=== PATIENT | female | born 1995 | race Hispanic/Latino ===

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

== ENCOUNTER 2018-09-11 11:08 | Emergency (ER) | payer MEDICAID, OTHER ==
[~2018-09-11 11:08] MED LIST: Iopamidol 370 76% 100 ML VIAL ONE; Iopamidol 370 76% 200 ML VIAL ONE; Sodium Chloride 0.9% 100 ML BAG ONE
[2018-09-11] MEDS ORDERED: Sodium Chloride 0.9% 1,000 ML ONE ×4 (11:27→15:19)
[2018-09-11] MEDS ORDERED: Dicyclomine 10 MG CAP ONE (11:27)
[2018-09-11 11:53] LABS: Band 3 % (5-11); Hemoglobin 13.8 g/dL (12.0-16.0); Lymphocytes 12 % (28-48); MDiff Complete? YES; Mean Corpuscular Volume 78.1 fL (78.0-98.0); Mean Platelet Volume 6.3 fL (7.4-10.4); Monocytes 1 % (0-4); Neutrophil 84 % (31-61); Platelet Count 355 thou/uL (130-400); RBC Distribution Width 13.3 % (11.5-14.5); Red Blood Cell (RBC) Count 5.54 mill/uL (4.00-5.20); White Blood Cell (WBC) Count 9.4 thou/uL (4.8-10.8)
[2018-09-11 11:57] LABS: ALT (SGPT) 25 U/L (8-55); AST (SGOT) 18 U/L (5-34); Albumin 4.4 g/dL (3.5-5.0); Alkaline Phosphatase 115 U/L (40-150); Anion Gap 12 mmol/L (10-20); BUN (Urea Nitrogen) 10 mg/dL (7.0-18.7); Bilirubin, Total 0.5 mg/dL (0.2-1.2); Calc. Creatinine Clearance 0 mL/min (70-130); Calcium 8.8 mg/dL (7.8-10.44); Carbon Dioxide 22 mmol/L (22-29); Chloride 108 mmol/L (98-107); Estimated GFR-MDRD Greater than 90; Globulin 3.2 g/dL (2.4-3.5); Glucose 114 mg/dL (70-105); Potassium 3.7 mmol/L (3.5-5.1); Protein, Total 7.6 g/dL (6.0-8.3); Sodium 138 mmol/L (136-145)
[2018-09-11] MEDS ORDERED: Loperamide HCl 2 MG CAP ONE (12:10)
[2018-09-11] MEDS ORDERED: Lorazepam 2 MG/ML VIAL ONE (14:58)
[2018-09-11 15:46] LABS: Bilirubin Negative (Negative); Blood, Urine Trace (Negative); Glucose, Urine (Dipstick) Negative (Negative); Leukocyte Negative (Negative); Nitrite Negative (Negative); Protein, Urine (Dipstick) Negative (Neg-Trace); Urobilinogen 0.2 mg/dL (0.2-1.0); pH, Urine 5.5 (5.0-9.0)
[2018-09-11 15:49] LABS: Pregnancy Test - Urine (BHCG) Negative (Negative); Pregu Control Background? CLEAR/WHITE (CLR/WHITE); Pregu Control Bar Appear? YES (CONTROL BAR)
[2018-09-11 15:52] LABS: Amphetamine Not Detected (NotDetected); Barbiturates Screen Not Detected (NotDetected); Benzodiazepine Screen Not Detected (NotDetected); Cocaine Metabolite Screen Not Detected (NotDetected); Medtox Control Line Valid? VALID (VALID); Methadone Not Detected (NotDetected); Methamphetamine Not Detected (NotDetected); Opiate Screen Not Detected (NotDetected); Oxycodone Screen Not Detected (NotDetected); Phencyclidine (PCP) Not Detected (NotDetected); THC/Cannabinoid Screen Not Detected (NotDetected); Tricyclic Screen Not Detected (NotDetected)
[2018-09-11 15:53] LABS: Bacteria/HPF Rare-Few HPF (None Seen); Clarity Hazy (Clear); RBC/HPF 0-3 HPF (0-3); WBC/HPF None Seen HPF (0-3)
--- NOTE | 2018-09-11 16:45 | CT ---
CT ABDOMEN AND PELVIS WITH IV CONTRAST 09/11/18 HISTORY: Abdominal pain, nausea, vomiting, diarrhea, and tachycardia. FINDINGS: There are mild dependent changes of the lung bases. The liver, spleen, pancreas, adrenal glands and l eft kidney are normal. There is a tiny calculus in the right kidney. There is mild right sided hydrou reteronephrosis. No calculi is seen in the ureters or the urinary bladder. No left sided hydrouretero nephrosis seen. There is a circumaortic left renal vein. No free air, free fluid or lymphadenopathy seen in the abdomen or pelvis. The small bowel loops are n ot abnormally dilated. A normal appearing appendix is present. The uterus and ovaries are present. No acute osseous abnormalities are seen. IMPRESSION: 1. Mild right sided hydroureteronephrosis without evidence of obstructing calculus. This may be due to infection or recent passage of calculus. 2. Tiny right renal calculus. POS: [facility]
--- NOTE | 2018-09-11 19:10 | CT ---
CT angiogram thorax with contrast: (CTA pulmonary angiogram) HISTORY: 22-year-old female with tachycardia and elevated d-dimer TECHNIQUE: IV injection of iodinated contrast. Scan acquisition timing attempted to coincide with iodinated contrast bolus reaching maximal density in pulmonary arteries. 3-D MIP reconstructions. FINDINGS: Pulmonary thromboembolism: Normal visualized, although peripheral branches are difficult to evaluate because of breathing motion artifact. Lungs: No consolidation. Diffusely hazy densities bilaterally could be due to patient breathing motion artifact, although mild pulmonary interstitial edema is not excluded.. Pneumothorax: None. Pleural effusion: None. Thoracic aorta: No aneurysm or dissection. IMPRESSION: No pulmonary thromboembolism identified.
== END 2018-09-11 20:43 | disposition short-term general hospital (02) ==
LOC: MADERS 11:08
DX: R00.0 Tachycardia, unspecified (principal); R19.7 Diarrhea, unspecified
CPT/HCPCS: 71275; 74177; 80053; 80306; 81003; 81015; 81025; 83605; 84443; 84484; 85025; 85379; 93005; 96361; 96374; J2060; J3490; J7050; Q9967

== ENCOUNTER 2021-04-11 10:43 | Emergency (ER) | payer MEDICAID, SELFPAY ==
[2021-04-11] MEDS ORDERED: Ondansetron ODT 4 MG TAB ONE (11:54)
[2021-04-11] MEDS ORDERED: Mag-Al Plus 1200 MG/1200 MG/120 MG/30 ML UDCUP ONE (11:55)
[2021-04-11] MEDS ORDERED: Lidocaine Viscous Sol 2% 15 ml UD Cup ONE (11:55)
[2021-04-11 12:32] LABS: Pregnancy Test - Urine (BHCG) Negative (Negative)
[2021-04-11 12:33] LABS: Pregu Control Background? CLEAR/WHITE (CLR/WHITE); Pregu Control Bar Appear? YES (CONTROL BAR); Specific Gravity 1.008 (1.002-1.036)
== END 2021-04-11 12:50 | disposition home or self-care (01) ==
LOC: MADERS 10:43
DX: R11.2 Nausea with vomiting, unspecified (principal); R19.7 Diarrhea, unspecified
CPT/HCPCS: 71046; 81025; 93005; Q0162